=== PATIENT | female | born 1945 | race Caucasian/White ===

== ENCOUNTER 2025-02-06 12:33 | Outpatient (CLI) | payer MEDICARE, OTHER, SELFPAY | END 2025-02-06 12:34 | disposition home or self-care (01) | LOC: NFLDREF 02-12 11:31 | PROVIDERS: Visit Provider Physician Assistant | DX: R42 Dizziness and giddiness (principal); G25.81 Restless legs syndrome | CPT/HCPCS: 82306; 82728 ==

== ENCOUNTER 2025-04-16 08:40 | Outpatient (CLI) | payer MEDICARE, OTHER, SELFPAY ==
--- NOTE | 2025-04-16 09:00 | CRLHL7_ITS ---
For Patients: As a result of the Century Cures Act, medical imaging exams and procedure reports are released immediately into your electronic medical record. You may view this report before your referring provider. If you have questions, please contact your health care provider. Indication: Chronic sinusitis. Technique: Noncontrast CT images of the paranasal sinuses. Comparison: None. Findings: Postsurgical changes of endoscopic sinus surgery including bilateral maxillary antrostomy and septoplasty. No air-fluid levels to suggest acute sinusitis. Minimal mucosal thickening in the maxillary sinuses. The ethmoid infundibula are widely patent. Mild mucosal thickening in the frontal recesses. The frontal sinuses are otherwise clear. Mild mucosal thickening in the ethmoid air cells. Minimal mucosal thickening in the sphenoid sinuses. The sphenoethmoidal recesses are widely patent. Mild rightward bowing of the nasal septum. No nasal cavity masses. The mastoid air cells are clear. 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 Impression: 1. Minimal paranasal sinus mucosal disease. No air-fluid levels to suggest acute sinusitis. 2. Postsurgical changes of endoscopic sinus surgery. Please note that all CT scans at this facility use dose modulation, iterative reconstruction, and/or weight-based dosing when appropriate to reduce radiation dose to as low as reasonably achievable. Dictated by Tan Bailey MD @ 04/16/2025 3:34:09 PM (Electronically Signed)
== END 2025-04-16 08:41 | disposition home or self-care (01) ==
LOC: CT 08:43
PROVIDERS: PCP Physician Assistant; Visit Provider Otolaryngology
DX: J32.9 Chronic sinusitis, unspecified (principal); Z98.890 Other specified postprocedural states; M26.641 Arthritis of right temporomandibular joint; J34.2 Deviated nasal septum; Z87.898 Personal history of other specified conditions
CPT/HCPCS: 70486